=== PATIENT | male | born 1985 | race Caucasian/White ===

== ENCOUNTER → 2019-03-30 | Outpatient (CLI) | payer OTHER ==
[~2019-03-30] MED LIST: AMOXICILLIN 8751 TAB PO; CEPHALEXIN500 M1 PO; CLARITIN 1010 MG/TAB PO; FLONASEALLERGY NS; NORCO 325 MG-51 TAB PO
== END ==
LOC: COL.RAD 16:09
DX: N50.812 Left testicular pain (principal)